=== PATIENT | female | born 1955 | race Caucasian/White ===

== ENCOUNTER → 2016-11-28 | Outpatient (CLI) | payer OTHER ==
--- NOTE | 2016-11-28 18:25 | MA ---
Screening Digital Mammogram With iCAD Analysis Clinical Indications: Routine screening. Her mother was diagnosed with breast cancer in her 80s and a paternal on in her 40s. The patient has had previous left breast biopsies. Technique: Standard cephalocaudal projections are obtained. Digital breast tomosynthesis was performe d in the MLO projection with reconstruction at 1.0 mm slice thickness and composite MLO views reconst ructed. A skin marker is placed on a left breast biopsy scar. This examination is processed by the [employer] computer aided detection system. Comparison: November 2015, October 2014, October 2013, October 2012, July 2011, July 2010 , February 2009. Breast density: Type C: Heterogeneously dense. Findings: CAD was reviewed. No masses, suspicious calcifications or secondary signs of malignancy are seen. There has been no significant change in the appearance of either breast. Impression: Negative mammogram. BI-RADS 1. Recommendation: Routine mammographic screening in one year as long as physical examination is negativ e in this patient with heterogeneously dense breast parenchyma. [facility] will send a result letter to the patient. Negative mammography should not preclude additional workup of a clinically suspicious finding. The patient's information is entered into a reminder system with a target due date for her next mammo gram.
== END ==
LOC: FIMAGING 14:45
DX: Z12.31 Encounter for screening mammogram for malignant neoplasm of breast (principal); Z80.3 Family history of malignant neoplasm of breast
CPT/HCPCS: G0202

== ENCOUNTER → 2017-12-01 | Outpatient (CLI) | payer OTHER | LOC: FIMAGING 11:31 | PROVIDERS: ATTEND Nurse Practitioner Women's Health | DX: Z12.31 Encounter for screening mammogram for malignant neoplasm of breast (principal); Z80.3 Family history of malignant neoplasm of breast ==

== ENCOUNTER 2017-12-14 08:33 | Emergency (ER) | payer OTHER ==
[2017-12-14 08:40] VITALS: RESP 14
[2017-12-14] MEDS ORDERED: NS 1,000 ML IV ONE (09:11)
[2017-12-14] MEDS ORDERED: HYDROmorphONE/DILAUDID 1 MG/ML INJ IVP ONE (09:11)
[2017-12-14] MEDS ORDERED: ONDANSETRON 4 MG/2 ML VIAL IVP ONE (09:11)
[2017-12-14] MEDS ORDERED: IOPAMIDOL (ISOVUE-300) 100 ML BTL ONE (09:36)
[2017-12-14] MEDS ORDERED: KETOROLAC 15 MG/1 ML SDV IVP ONE (11:13)
[2017-12-14] MEDS ORDERED: HYDROCODONE/APAP 5/325 TAB PO ONE (11:14)
--- NOTE | 2017-12-14 11:18 | EDPHY ---
H & P Stated Complaint: Slip on ice; Back pain - Personal History Current Tetanus Diphtheria and Acellular Pertussis (TDAP): Yes - Medical/Surgical History Hx Asthma: No Hx Chronic Respiratory Disease: No Hx Diabetes: No Hx Cardiac Disease: No Hx Renal Disease: No Hx Cirrhosis: Yes Hx Alcoholism: No Hx HIV/AIDS: No Hx Splenectomy or Spleen Trauma: No Other PMH: Biliary Cirrhosis - Social History Smoking Status: Never smoked Time Seen by Provider: 12/14/17 08:44 HPI/ROS: Chief complaint: Slip and fall with low back injury History of present illness: This is a 62-year-old female who presents to the emergency department for evaluation after slipping and falling on the ice, landing onto her low back and injuring it. She states the pain is in the right , lower aspect of the back. It makes it difficult to move. She feels a fullness in the region. She denies other associated signs or symptoms including no open wounds. No report of trauma to or pain in the head, neck, chest, abdomen or extremities. Review of systems: A 10 point review of systems was obtained and other than described above was negative (Florian Herrera) - Physical Exam Exam: General Appearance: Alert, nontoxic. Eyes: Pupils equal and round no pallor or injection. ENT, Mouth: Mucous membranes moist. Respiratory: There are no retractions, lungs are clear to auscultation. Cardiovascular: Regular rate and rhythm. Gastrointestinal: Abdomen is soft and non tender, no masses, bowel sounds normal. Neurological: Alert and oriented x4. Cranial nerves 2-12 grossly intact. Strength and sensation intact and symmetrical. Skin: Warm and dry, no rashes. Musculoskeletal: The head is nontender. Neck is supple non tender. The spine is nontender, there is no crepitus, bony deformity or step-off on palpation of it. There is tenderness to the mid to lower aspect of the right side of the back. Extremities are symmetrical, full range of motion. Psychiatric: Patient is oriented X 3, there is no agitation. (Florian Herrera) Constitutional: Initial Vital Signs Temperature (C) 36.9 C 12/14/17 08:35 Heart Rate 85 12/14/17 08:35 Respiratory Rate 14 12/14/17 08:35 Blood Pressure 138/95 H 12/14/17 08:35 O2 Sat (%) 98 12/14/17 08:35 O2 Delivery Mode Room Air Allergies/Adverse Reactions: codeine [Codeine] Allergy (Mild, Verified 01/08/10 17:09) Itching Home Medications: Medication Instructions Recorded Cyclobenzaprine [Flexeril 10 MG 10 mg PO TID #10 tab 12/14/17 (*)] Hydrocodone/APAP 5/325 [[place] 1 tab PO Q6H #10 tab 12/14/17 5/325 (*)] Ursodiol 12/14/17 Medical Decision Making - Diagnostics Imaging: Discussed imaging studies w/ manager call center Radiologist ED Course/Re-evaluation: Patient is seen under the supervision of my secondary supervising physician Dr. Romy Scanlon. Patient presents to the emergency department for right lower back pain after a slip and fall. CT scan the abdomen and pelvis is negative for acute findings. By history and physical exam no evidence of trauma to the spine itself or the rest of the body. She has been symptomatically treated with improvement in pain. She is ambulating well. Patient will be discharged home. Home care is discussed. She is to follow up with her primary care doctor for recheck. Return precautions are given. Patient voiced understanding and agreement with plan. (Florian Herrera) The patient was evaluated and managed by the physician surveyor instrument assistant. I have reviewed this chart and I agree with the findings and plan of care as documented , as indicated by my signature. I am the secondary supervising physician. ( Romy Scanlon) Differential Diagnosis: Included but not limited to soft tissue injury, retroperitoneal injury, intra- abdominal injury, unlikely spinal cord injury as there is no report of pain or tenderness to the spine (Florian Herrera) - Data Points Medications Given: Discontinued Medications Hydrocodone Bitart/Acetaminophen ([place] 5/325) 1 tab PO EDNOW ONE Stop: 12/14/17 11:15 Last Admin: 12/14/17 13:14 Dose: Not Given Hydrocodone Bitart/Acetaminophen ([place] 5/325mg Prepack#6) 1 btl TAKEHOME EDNOW ONE Stop: 12/14/17 11:43 Last Admin: 12/14/17 13:25 Dose: 1 btl Cyclobenzaprine HCl (Flexeril) 10 mg PO EDNOW ONE Stop: 12/14/17 11:54 Last Admin: 12/14/17 11:59 Dose: 10 mg Cyclobenzaprine HCl (Flexeril 10 Mg Prepack#3) 1 btl TAKEHOME EDNOW ONE Stop: 12/14/17 12:50 Last Admin: 12/14/17 13:24 Dose: 1 btl Hydromorphone HCl (Dilaudid) 0.5 mg IVP EDNOW ONE Stop: 12/14/17 09:12 Last Admin: 12/14/17 09:20 Dose: 0.5 mg Sodium Chloride (Ns) 1,000 mls @ 0 mls/hr IV EDNOW ONE; Wide Open PRN Reason: Protocol Stop: 12/14/17 09:12 Last Admin: 12/14/17 09:23 Dose: 1,000 mls Ketorolac Tromethamine (Toradol) 15 mg IVP EDNOW ONE Stop: 12/14/17 11:14 Last Admin: 12/14/17 11:19 Dose: 15 mg Lidocaine (Lidoderm 5%) 1 ea TD EDNOW ONE Stop: 12/15/17 11:55 Last Admin: 12/14/17 12:28 Dose: 1 ea Ondansetron HCl (Zofran) 4 mg IVP EDNOW ONE Stop: 12/14/17 09:12 Last Admin: 12/14/17 09:20 Dose: 4 mg Departure - Departure Disposition: Home, Routine, Self-Care Clinical Impression: Back strain Condition: Good Instructions: Hydrocodone/Acetaminophen (By mouth), Cyclobenzaprine (By mouth) , Low Back Strain (ED) Additional Instructions: Follow-up with a primary care doctor tomorrow for recheck In regards to pain control see the following: Use ibuprofen 400 mg [3] times a day for the next 2-3 days for pain In addition You have been prescribed [[place]] for pain. [[place]] contains Tylenol, do not take extra Tylenol/acetaminophen/Apap with it. It is sedating. If symptoms worsen or new symptoms develop return to the emergency room for recheck Referrals: NONE *PRIMARY CARE P,. [Primary Care Provider] - As per Instructions Hardik Nina MD [[facility] Primary Care Provider] - As per Instructions Prescriptions: Cyclobenzaprine [Flexeril 10 MG (*)] 10 mg PO TID #10 tab Hydrocodone/APAP 5/325 [[place] 5/325 (*)] 1 tab PO Q6H #10 tab
[2017-12-14] MEDS ORDERED: HYDROCOD/APAP 5/325 PREPACK#6 BTL TAKEHOME ONE (11:42)
[2017-12-14] MEDS ORDERED: CYCLOBENZAPRINE 10 MG TAB PO ONE (11:53)
[2017-12-14] MEDS ORDERED: LIDOCAINE 5% 1 EA PATCH TD ONE (11:57)
[2017-12-14] MEDS ORDERED: CYCLOBENZAPRINE 10MG PREPACK#3 BTL TAKEHOME ONE (12:49)
[2017-12-14 13:32] VITALS: BP 110/78; PULSE 78; TEMP 97.7; O2SAT 95
[2017-12-14] MEDS ORDERED: PATCH REMOVAL 1 EA PATCH TD SCH (21:00)
[2017-12-15] MEDS ORDERED: LIDOCAINE 5% 1 EA PATCH TD ONE (11:54)
== END 2017-12-14 13:31 | disposition home or self-care (01) ==
LOC: EDUNIT#
DX: S39.012A Strain of muscle, fascia and tendon of lower back, initial encounter (principal); E86.9 Volume depletion, unspecified; W00.0XXA Fall on same level due to ice and snow, initial encounter
CPT/HCPCS: 82947-QW; 96374; J1170; J1885; J2405; Q9967

== ENCOUNTER → 2018-12-03 | Outpatient (CLI) | payer OTHER | LOC: FIMAGING 10:22 | PROVIDERS: ATTEND Nurse Practitioner Women's Health | DX: Z12.31 Encounter for screening mammogram for malignant neoplasm of breast (principal); M81.0 Age-related osteoporosis without current pathological fracture; Z78.0 Asymptomatic menopausal state; Z80.3 Family history of malignant neoplasm of breast ==